=== PATIENT | male | born 1995 | race African-American/Black ===

== ENCOUNTER 2025-10-04 13:42 | Emergency (ER) | payer OTHER ==
[~2025-10-04] VITALS: Ht 188 cm; Wt 82.4 kg
[2025-10-04] MEDS ORDERED: CEPH500C PO (16:21)
[2025-10-04] MEDS ORDERED: NAPR-837 PO (16:21)
[2025-10-04 16:46] VITALS: BP 157/95; TEMP 98.5; O2SAT 99
== END 2025-10-04 16:50 | disposition home or self-care (01) ==
LOC: M ED 13:42
DX: L03.113 Cellulitis of right upper limb (principal); Y92.89 Other specified places as the place of occurrence of the external cause; Y93.H1 Activity, digging, shoveling and raking; Y99.1 Military activity; Z79.2 Long term (current) use of antibiotics; Z79.1 Long term (current) use of non-steroidal anti-inflammatories (NSAID)